=== PATIENT | female | born 1975 | race Caucasian/White ===

== ENCOUNTER 2022-03-22 17:30 | Emergency (ER) | payer MEDICAID ==
[2022-03-22] MEDS ORDERED: traMADol 50 MG Tab PO ONE (20:40)
[2022-03-22] MEDS ORDERED: Ibuprofen 600 MG Tab PO ONE (20:40)
== END 2022-03-22 21:05 | disposition home or self-care (01) ==
LOC: MW.ED 17:30
DX: M23.92 Unspecified internal derangement of left knee (principal); E66.9 Obesity, unspecified; Z68.35 Body mass index [BMI] 35.0-35.9, adult; Z88.5 Allergy status to narcotic agent
CPT/HCPCS: 73562; 99283; A9270